=== PATIENT | male | born 1965 | race African-American/Black ===

== ENCOUNTER 2022-10-20 18:37 | Emergency (ER) | payer MEDICAID, OTHER ==
[~2022-10-20] VITALS: Ht 182.9 cm; Wt 90.0 kg
[2022-10-20 22:00] LABS: BASOPHILS % 0.8 % (0.0-2.0); EOSINOPHILS % 6.8 % (0.0-5.0); HEMATOCRIT. 42.4 % (42.0-52.0); HEMOGLOBIN. 14.6 g/dL (14.0-18.0); LYMPHOCYTES % 39.1 % (20.0-50.0); MEAN CORPUSCULAR HEMOGLOBIN 32.4 pg (28.0-32.0); MEAN CORPUSCULAR VOLUME 93.8 fL (80.0-94.0); MEAN PLATELET VOLUME 8.1 fl (7.4-10.4); MONOCYTES % 9.2 % (2.0-8.0); NEUTROPHILS % 44.1 % (40.0-76.0); PLATELET 218 x1000/uL (130-400); RED BLOOD CELL COUNT 4.52 mill/uL (4.7-6.1); RED CELL DISTRIBUTION WIDTH 13.2 % (11.6-14.6)
[2022-10-20 22:05] LABS: CHLORIDE 107 mEq/L (98-107)
[2022-10-20 22:57] VITALS: BP 154/81
== END 2022-10-20 23:01 | disposition home or self-care (01) ==
LOC: ER 19:05
DX: R55 Syncope and collapse (principal); R42 Dizziness and giddiness; R03.0 Elevated blood-pressure reading, without diagnosis of hypertension
CPT/HCPCS: 36415; 80053; 82962; 85025; 93005; 99284

== ENCOUNTER 2023-04-24 06:48 | Emergency (ER) | payer OTHER ==
[~2023-04-24] VITALS: Ht 180.3 cm; Wt 88.2 kg
[2023-04-24 06:52] VITALS: PULSE 65; RESP 18
[2023-04-24 07:00] VITALS: BP 144/93; TEMP 98.4; O2SAT 99
[2023-04-24] MEDS ORDERED: TETANUS, DIPHTHERIA, PERTUSSIS VAC/PF 0.5ML (>10YR OLD) IM ONE (07:15)
[2023-04-24] MEDS ORDERED: LIDOCAINE HCL/PF 1% 10 MG/ML 5ML VIAL INFIL ONE (07:15)
== END 2023-04-24 07:08 | disposition home or self-care (01) ==
LOC: ER 07:02
DX: S51.812A Laceration without foreign body of left forearm, initial encounter (principal); W26.0XXA Contact with knife, initial encounter; Y93.89 Activity, other specified; Y92.832 Beach as the place of occurrence of the external cause; Y99.8 Other external cause status
CPT/HCPCS: 90715; 12001; 90471; 99283; J3490; Z7610 ×3